=== PATIENT | female | born 1955 | race Caucasian/White ===

== ENCOUNTER 2020-12-10 10:45 | Outpatient (RCR) | payer BC, SELFPAY ==
--- NOTE | 2020-12-14 07:43 | HP.OTEVAL ---
Patient's Visit Information ELHAM VANEGAS is a 65 year old F, referred to Occupational Therapy by Dr. Donald Law MD, with a diagnosis of right wrist pain. Date of Evaluation: 12/10/20 Occupational Therapist: Rachael Luevano, SEYMOURR/Joshua, CHT - Subjective This 65 year old female was seen for right wrist pain- pt states she had increase pain after writing a letter by hand. pt states after writing a letter in Jul. she developed a lump on her right wrist. Following Dr. Ortiz perscribed prednisone and this has reduced in size. pt feels she is doing ok at this time. - ADLs Miscellaneous: Write, Will/knit/needlework - Pain right wrist 2 Pain Intensity Range: 0, 4 - ROM Wrist: right 75/50 left 80/65 CMC: right 15 left 10 MP: right 55 left 55 IP: right 70* left 70* Radial Abduction: right 40* left 40* - Strength [employer]: right 38# left 40# Lateral Pinch: right 10# left 10# Tripod Pinch: right 12# left 12# Tip-to-Tip Pinch: right 12# left 10# - DASH-Disabilities of Arm, Shoulder& Hand DASH Sum: 15 - Quick DASH-Disab of Arm,Shoulder& Hand Quick DASH Score: 34.0900 - Goals Goal:: pt will demo understanding of joint protection sara. with ADLs and IADL by end of 1st session. pt will demo understanding of ad. eq. to decrease stress on joints/tendons with ADLs and IADLs by end of 1st session. pt will demo understanding of wrist ergononics by end of 1st session. - Rehabilitation General Assessment: pt demo with good ROM and strength but limited with writing tasks due to pain. This continues and increased with daily occupations. pt would benefit from skilled OT services to ed. pt on wrist ergonomics, adaptive pen (to decrease pressure with writing) and ed. of joint precautions to decrease stress on tendons with daily tasks. Today therapist ed. pt on joint protection, adaptive writing (gel pen) , use of spring loaded scissors when opening bags etc. Therapist also ed pt on wrist ergo to prevent grasping with wrist in a flexed position. Pt demo understanding and agree to HEP Rehabilitation Potential: Good - Anticipated Interventions Joint Protection/Energy Conservation, Ergonomic Education, Home Program - Visit Plan TEXT: Thank you for the opportunity to evaluate your patient. For Medicare and Medicare HMO plans, please review the plan of care and approve it. It will need to be FAXED BACK to us at [phone] for Medicare purposes. Please let me know if there are questions or concerns regarding this plan of care. Physician Signature: Date:
--- NOTE | 2021-06-03 12:23 | HP.OTDCSUM_ITS ---
It has been my pleasure to treat ELHAM VANEGAS under orders from Dr. Donald Law MD, for the diagnosis of right wrist pain for a total of 1 visit(s). Please see the following information for a summary of their discharge status. Patient Goals: Decrease Pain, Use Hand/Wrist/Arm Normally Again Goal:: pt will demo understanding of joint protection sara. with ADLs and IADL by end of 1st session. pt will demo understanding of ad. eq. to decrease stress on joints/tendons with ADLs and IADLs by end of 1st session. pt will demo und erstanding of wrist ergononics by end of 1st session. If there are questions or concerns regarding this patient's occupational therapy, please fell free to call me at [phone]. Thank you for the referral of this patient. Sincerely, Rachael Luevano, OTR/L, CHT pt was seen for initial OT eval and give HEP per pt. choice. pt was advised to call if she had questions or concerns.
== END 2020-12-10 19:00 | disposition home or self-care (01) ==
LOC: OT 10:45
PROVIDERS: PCP Family Medicine; Referring Provider Specialist; Visit Provider Specialist
DX: M25.531 Pain in right wrist (principal); M19.031 Primary osteoarthritis, right wrist
CPT/HCPCS: 97166